=== PATIENT | male | born 1955 | race Caucasian/White ===

== ENCOUNTER → 2021-05-20 07:10 | Outpatient (CLI) | payer MEDICARE, OTHER, SELFPAY ==
--- NOTE | ~2021-05-20 | XR_ITS ---
XR chest 2V DATE: 05/20/2021 08:46 INDICATION: Shortness of breath TECHNIQUE: PA and lateral views COMPARISON: None FINDINGS: Normal heart size. No hilar or mediastinal enlargement. No pulmonary infiltrate or consol idation, pulmonary vascular congestion or pleural effusion or pneumothorax. Degenerative spurring of the thoracic spine. IMPRESSION: No active cardiopulmonary disease Reviewed, dictated and finalized at location B.
== END ==
PROVIDERS: PCP Internal Medicine; Visit Provider Nurse Practitioner
DX: R06.02 Shortness of breath (principal)
CPT/HCPCS: 71046

== ENCOUNTER 2023-09-07 09:38 | Outpatient (CLI) | payer MEDICARE, OTHER, SELFPAY ==
--- NOTE | ~2023-09-07 | MR_ITS ---
MRI of the lumbar spine Clinical History: Back pain Technique: Axial T2-weighted images, and sagittal T1-weighted, T2-weighted, and T2 fat-sat images wer e acquired. Findings: There is no fracture or subluxation of the lumbar spine. Vertebral bodies maintain normal h eight and alignment. No suspicious marrow signal abnormality seen. At L1-L2 and L2-L3, there is no significant disc bulge or herniation. There is mild to moderate facet arthropathy. No spinal canal stenosis or neural foraminal narrowing at these levels. At L3-L4, there is minimal disc bulge and moderate to advanced facet arthropathy. No central canal st enosis or neural foraminal narrowing. At L4-L5, there is advanced degenerative disc narrowing. There is mild disc bulge with moderate facet arthropathy. No central canal stenosis. There is minimal right neural foraminal narrowing. Left neur al foramen preserved. At L5-S1, there is moderate degenerative disc change. There is central to right paracentral disc prot rusion with advanced facet arthropathy. No central canal stenosis. There is minimal right neural fora gurpreet narrowing. Left neural foramen preserved. Paravertebral soft tissues are unremarkable. Impression: Mild degenerative spondylosis, as detailed above. Reviewed, dictated and finalized at location . 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
== END 2023-09-07 09:39 | disposition home or self-care (01) ==
PROVIDERS: PCP Internal Medicine; Visit Provider Student in an Organized Health Care Education/Training Program
DX: M54.41 Lumbago with sciatica, right side (principal); M47.897 Other spondylosis, lumbosacral region
CPT/HCPCS: 72148